=== PATIENT | male | born 1945 | race Caucasian/White ===

== ENCOUNTER 2019-07-24 05:32 | Day surgery (SDC) | payer OTHER ==
[~2019-07-24] VITALS: Ht 188 cm; Wt 95.3 kg
[~2019-07-24 05:32] MED LIST: ATOR20TA65 PO; CILO100T PO; EMBREL; LOSA25TA41 PO; METO50TA18 PO; PYRI60TA PO
[2019-07-24] MEDS ORDERED: SODIUM CHLORIDE 0.9% 1000ML 1,000 ML IV ONE (06:15)
[2019-07-24 06:24] VITALS: BP 147/84
[2019-07-24] MEDS ORDERED: LIDOCAINE HCL 1% 20 ML VIAL ONE ×2 (07:47→08:43)
[2019-07-24] MEDS ORDERED: PROPOFOL 10 MG/ML 20ML VIAL IV ONE ×2 (07:47→08:43)
[2019-07-24 08:08] VITALS: BP 119/80
[2019-07-24 08:13] VITALS: BP 120/74
[2019-07-24 08:18] VITALS: BP 115/72
[2019-07-24 08:23] VITALS: BP 124/89
[2019-07-24] MEDS ORDERED: PHENYLEPHRINE HCL 10 MG/ML 1ML VIAL IV ONE (08:43)
== END 2019-07-24 08:30 | disposition home or self-care (01) ==
LOC: DAH 05:32 → ENDO 05:32
PROVIDERS: ATTEND Internal Medicine
DX: R19.4 Change in bowel habit (principal); D12.4 Benign neoplasm of descending colon; K62.1 Rectal polyp; K57.30 Diverticulosis of large intestine without perforation or abscess without bleeding; K52.9 Noninfective gastroenteritis and colitis, unspecified; K63.3 Ulcer of intestine; J44.9 Chronic obstructive pulmonary disease, unspecified; I10 Essential (primary) hypertension; M06.9 Rheumatoid arthritis, unspecified; G70.00 Myasthenia gravis without (acute) exacerbation; Z86.010 Personal history of colon polyps; Z79.899 Other long term (current) drug therapy; Z98.890 Other specified postprocedural states; Z88.0 Allergy status to penicillin
CPT/HCPCS: 45380; 45385; 88305; A4215; A4221; A4222; A4223; A4606; A4615; A4663; J2370; J2704 ×2; J7030